=== PATIENT | female | born 1950 | race Caucasian/White ===

== ENCOUNTER 2020-05-10 13:52 | Outpatient (REF) | payer MEDICARE, SELFPAY ==
--- NOTE | 2020-05-10 13:59 | MM_ITS ---
EXAMINATION: MM SCREENING DIGITAL BREAST TOMOSYNTHESIS, BILATERAL CLINICAL INFORMATION: Screening. Asymptomatic. The lifetime risk of breast cancer based on the Tyrer-Cuzick Model is 5.5%. COMPARISON: Mammography: May 08, 2019 and studies dating back to October 04, 2011 TECHNIQUE: Digital breast tomosynthesis is performed in both the craniocaudal and mediolateral oblique views along with computer-aided detection (CAD). Synthesized 2D images are generated from the tomosynthesis. FINDINGS: The breasts are heterogeneously dense, which may obscure small masses (ACR BI-RADS breast composition Category c). There are no significant masses, abnormal calcifications, or other abnormalities. MM/MM tomosynthesis screening BI IMPRESSION: There are no significant changes from prior study. ASSESSMENT: BI-RADS 1: Negative RECOMMENDATION: Routine annual mammography screening. This patient's information was entered into a reminder system with a target due date for their next mammogram.
--- NOTE | 2020-05-10 14:00 | MM_ITS ---
EXAMINATION: BONE DENSITOMETRY CLINICAL INDICATION: Screening for osteoporosis. COMPARISON: This is the patient's baseline examination. TECHNIQUE: Using a [employer] DXA System (software version: 13.1) manufactured by [employer], dual-energy x-ray absorptiometry was performed of the lumbar spine and left hip. The images are of good technical quality. Summary results are attached. FINDINGS: AP SPINE L1-L4: BMD 1.078 g/cm2, Z-score 0.3, T-score -0.9, normal. LEFT FEMUR, NECK: BMD 0.892 g/cm2, Z-score 0.2, T-score -1.1, osteopenia. LEFT FEMUR, TOTAL: BMD 0.954 g/cm2, Z-score 0.6, T-score -0.4, normal. IDENTIFIED RISK FACTORS: Menopause. HISTORY OF FRACTURE: None listed. MEDICATIONS: Calcium, vitamin D. MM/XR DEXA axial skeleton IMPRESSION: 1. DIAGNOSIS: Osteopenia based on the lowest T-score value of -1.1 in the femoral neck applying World Health Organization criteria. 2. 10-YEAR FRACTURE RISK PREDICTION, FRAX: Major osteoporotic fracture (clinical spine, forearm, hip or shoulder) 8.3%. Hip fracture 0.7%. 3. Treatment Recommendations: NOF guidelines recommend consideration for treatment in postmenopausal women and men age 50 and older presenting with the following: -A hip or vertebral (clinical or morphometric) fracture. -T-score less than or equal to -2.5 at the femoral neck or spine after appropriate evaluation to exclude secondary causes. -Low bone mass at the hip or spine and a 10-year fracture probability by FRAX of greater than or equal to 3% for hip fracture or greater than or equal to 20% for major osteoporotic fracture based on the [place] adapted WHO algorithm. 4. Other Recommendations: All treatment decisions require clinical judgment and consideration of individual patient factors, including patient preferences, comorbidities, previous drug use, risk factors not captured in the FRAX model (e.g. frailty, falls, vitamin D deficiency, increased bone turnover, interval significant decline in bone density) and possible under or overestimation of fracture risk by FRAX. Additional medical evaluation for secondary cause of low bone mineral density may be appropriate. FUTURE SCAN RECOMMENDATION: People with diagnosed cases of osteoporosis or at high risk for fracture should have regular bone mineral density tests. For patients eligible for Medicare, routine testing is allowed once every 2 years. The testing frequency can be increased to one year for patients who have rapidly progressing disease, those who are receiving or discontinuing medical therapy to restore bone mass, or have additional risk factors.
== END 2020-05-10 13:53 | disposition home or self-care (01) ==
LOC: HO.MAMMO 13:52
PROVIDERS: PCP Family Medicine; Visit Provider Obstetrics & Gynecology
DX: Z12.31 Encounter for screening mammogram for malignant neoplasm of breast (principal); Z13.820 Encounter for screening for osteoporosis; Z79.83 Long term (current) use of bisphosphonates
CPT/HCPCS: 77063; 77067; 77080

== ENCOUNTER → 2021-04-19 09:10 | Outpatient (BNVA) | payer MEDICARE, SELFPAY | PROVIDERS: Visit Provider Obstetrics & Gynecology ==

== ENCOUNTER 2021-05-31 07:39 | Outpatient (REF) | payer MEDICARE, SELFPAY ==
--- NOTE | ~2021-05-31 | MM_ITS ---
EXAMINATION: MM SCREENING DIGITAL BREAST TOMOSYNTHESIS, BILATERAL CLINICAL INFORMATION: Screening. Asymptomatic. The lifetime risk of breast cancer based on the Tyrer-Cuzick Model is 5%. COMPARISON: Mammography: 05/10/2020, 05/08/2019, 04/15/2018 TECHNIQUE: Digital breast tomosynthesis is performed in both the craniocaudal and mediolateral oblique views along with computer-aided detection (CAD). Synthesized 2D images are generated from the tomosynthesis. FINDINGS: There are scattered areas of fibroglandular density (ACR BI-RADS breast composition Category b). There are no significant masses, abnormal calcifications, or other abnormalities. Parenchymal pattern is similar to prior studies. There is no developing density or architectural abnormality. The axilla and skin contours are unremarkable. No significant changes. MM/MM tomosynthesis screening BI IMPRESSION: No mammographic evidence of malignancy. ASSESSMENT: BI-RADS 1: Negative RECOMMENDATION: Routine annual mammography screening. This patient's information was entered into a reminder system with a target due date for their next mammogram.
== END 2021-05-31 07:40 | disposition home or self-care (01) ==
LOC: HO.MAMMO 07:39
PROVIDERS: PCP Family Medicine; Visit Provider Obstetrics & Gynecology
DX: Z12.31 Encounter for screening mammogram for malignant neoplasm of breast (principal)
CPT/HCPCS: 77063; 77067

== ENCOUNTER 2022-06-07 08:02 | Outpatient (REF) | payer MEDICARE, SELFPAY ==
--- NOTE | ~2022-06-07 | MM_ITS ---
EXAMINATION: BONE DENSITOMETRY CLINICAL INDICATION: Menopause. COMPARISON: Baseline BD dated 05/10/2020. TECHNIQUE: Using a [employer] DXA System (software version: 13.1) manufactured by [employer], dual-energy x-ray absorptiometry was performed of the lumbar spine and left hip. The images are of good technical quality. Summary results are attached. FINDINGS: AP SPINE L1-L4: Current: BMD 1.026 g/cm2, Z-score -0.3, T-score -1.3, osteopenia, 4.8% decrease from baseline (<5% change is not significant). Baseline: BMD 1.078 g/cm2. LEFT FEMUR, NECK: Current: BMD 0.842 g/cm2, Z-score -0.1, T-score -1.4, osteopenia. Baseline: BMD 0.892 g/cm2. LEFT FEMUR, TOTAL: Current: BMD 0.925 g/cm2, Z-score 0.3, T-score -0.7, normal, 3.0% decrease from baseline (<5% change is not significant). Baseline: BMD 0.954 g/cm2. IDENTIFIED RISK FACTORS: Menopause. HISTORY OF FRACTURE: None listed. MEDICATIONS: Calcium supplement or multivitamin. Vitamin D. MM/XR DEXA axial skeleton IMPRESSION: 1. DIAGNOSIS: Osteopenia based on the lowest T-score value of -1.4 in the femoral neck applying World Health Organization criteria. 2. 10-YEAR FRACTURE RISK PREDICTION, FRAX: Major osteoporotic fracture (clinical spine, forearm, hip or shoulder) 9.1%. Hip fracture 1.2%. 3. Treatment Recommendations: NOF guidelines recommend consideration for treatment in postmenopausal women and men age 50 and older presenting with the following: -A hip or vertebral (clinical or morphometric) fracture. -T-score less than or equal to -2.5 at the femoral neck or spine after appropriate evaluation to exclude secondary causes. -Low bone mass at the hip or spine and a 10-year fracture probability by FRAX of greater than or equal to 3% for hip fracture or greater than or equal to 20% for major osteoporotic fracture based on the [place] adapted WHO algorithm. 4. Other Recommendations: All treatment decisions require clinical judgment and consideration of individual patient factors, including patient preferences, comorbidities, previous drug use, risk factors not captured in the FRAX model (e.g. frailty, falls, vitamin D deficiency, increased bone turnover, interval significant decline in bone density) and possible under or overestimation of fracture risk by FRAX. Additional medical evaluation for secondary cause of low bone mineral density may be appropriate. FUTURE SCAN RECOMMENDATION: People with diagnosed cases of osteoporosis or at high risk for fracture should have regular bone mineral density tests. For patients eligible for Medicare, routine testing is allowed once every 2 years. The testing frequency can be increased to one year for patients who have rapidly progressing disease, those who are receiving or discontinuing medical therapy to restore bone mass, or have additional risk factors.
--- NOTE | ~2022-06-07 | MM_ITS ---
EXAMINATION: MM SCREENING DIGITAL BREAST TOMOSYNTHESIS, BILATERAL CLINICAL INFORMATION: Screening. Asymptomatic. The lifetime risk of breast cancer based on the Tyrer-Cuzick Model is 5%. COMPARISON: Mammography: 05/31/2021, 05/10/2020, 05/08/2019 TECHNIQUE: Digital breast tomosynthesis is performed in both the craniocaudal and mediolateral oblique views along with computer-aided detection (CAD). Synthesized 2D images are generated from the tomosynthesis. FINDINGS: There are scattered areas of fibroglandular density (ACR BI-RADS breast composition Category b). There are no significant masses, abnormal calcifications, or other abnormalities. Parenchymal pattern is similar to prior studies and there is no developing density or interval architectural abnormality. Incidental dermal lesion again noted overlying the mid lower left breast. The axilla are unremarkable. No significant changes. MM/MM tomosynthesis screening BI IMPRESSION: No mammographic evidence of malignancy. ASSESSMENT: BI-RADS 2: Benign RECOMMENDATION: Routine annual mammography screening. This patient's information was entered into a reminder system with a target due date for their next mammogram.
== END 2022-06-07 08:03 | disposition home or self-care (01) ==
LOC: HO.MAMMO 08:02
PROVIDERS: PCP Family Medicine; Visit Provider Obstetrics & Gynecology
DX: Z12.31 Encounter for screening mammogram for malignant neoplasm of breast (principal); Z13.820 Encounter for screening for osteoporosis; Z78.0 Asymptomatic menopausal state
CPT/HCPCS: 77063; 77067; 77080

== ENCOUNTER → 2022-07-04 12:17 | Outpatient (BNVA) | payer MEDICARE, SELFPAY | PROVIDERS: PCP Family Medicine; Visit Provider Obstetrics & Gynecology | DX: M85.80 Other specified disorders of bone density and structure, unspecified site (principal) | CPT/HCPCS: 99212 ==

== ENCOUNTER 2023-06-07 12:17 | Outpatient (AMB) | payer MEDICARE, SELFPAY ==
--- NOTE | 2023-06-07 12:19 | MHC.OFFVIS ---
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 No complaints. Last Pap/HPV was in 2013 was negative, this was preceded by negative Pap in 2012 in 2011 Last Mammogram was in 06/23 was BI-RADS 2 Last Colonoscopy was in 2022 at [facility], the recommendation according to the patient is to repeat in 10 years Last DEXA scan was in 06/26 was in the low risk category with no evidence of osteoporosis PFSH Medical History High cholesterol Surgical History Hx of neck surgery Family History Father COPD (chronic obstructive pulmonary disease) Mother Lung cancer Social History Alcohol intake: never Sexual orientation: Straight/Heterosexual Gender identity: Female Female Reproductive History Menstrual Age of Menarche: 14 Menopause type: natural Total pregnancies: 2 Full term: 2 Number of Living Children: 2 Date of last pap smear: 05/18/14 (neg) Date of Mammogram: 06/07/22 Date of last Bone Density Screenin06/07/22 Review of Systems Const All systems reviewed & are unremarkable except as noted in HPI and below Card Reports as per HPI Resp Reports as per HPI GI Reports as per HPI and Reports no additional complaints Reports as per HPI Physical Exam Vital Signs: BMI result Body Mass Index 33.7 Const General: cooperative, healthy appearing and comfortable Chest Chest palpation & inspection: normal inspection of the chest and normal palpation of entire chest wall Breast/axilla inspection: normal inspection of the breasts and normal inspection of the axillae Breast/axilla palpation: normal palpation of the breasts, normal palpation of the axillae and no axillary lymphadenopathy Resp Effort & Inspection: normal respiratory effort Auscultation: clear to auscultation bilaterally Percussion: percussion normal Cardio Palpation: normal PMI Rate: regular rate Rhythm: regular rhythm Heart sounds: no murmurs and no rubs Peripheral pulses: Peripheral pulses 2+ throughout GI Inspection: Yes normal to inspection Palpation (GI): Soft to palpation, nontender, no guarding, not rigid and No hepatosplenomegaly present Percussion: Yes normal to percussion Auscultation: normal bowel sounds Rectal Exam - Female: deferred General: Yes bladder normal to palpation External Female Exam: No lesion Speculum Exam - Vagina: normal appearance of the vagina, normal palpation, normal vaginal discharge and not erythematous Speculum Exam - Cervix: normal appearance of the cervix and normal palpation Bimanual exam- vagina & uterus: normal bimanual exam, normal palpation, uterine size normal, bladder normal to palpation, consistency normal and normal palpation Bimanual Exam- Adnexa, other: normal adnexae, no masses and no tenderness Assessment & Plan Assessment & Plan (1) Well woman exam: Code(s): Z01.419 - Encounter for gynecological examination (general) (routine) without abnormal findings Plan: Co testing not indicated since the patient 's age is above 65 with no history of abnormal Pap smears last 25 years. Counseled the patient about the recommended dietary allowance of 1200 mg of Calcium & 800 IU of vitamin D. Mammogram ordered. The patient was instructed to schedule an annual exam in a year; All questions answered and the patient verbalized understanding. Orders: Orders MM tomosynthesis screening BI Today Z12.31 - Encounter for screening mammogram for malignant neoplasm of breast Coding Level of Care Code Est Pt Prev Care >65y(79552) Diagnoses Well woman exam Z01.419
[2023-06-07 12:20] VITALS: BP 122/70; BMI 33.7
== END 2023-06-07 12:40 | disposition home or self-care (01) ==
LOC: HO.HWS 12:17
PROVIDERS: PCP Family Medicine; Visit Provider Obstetrics & Gynecology
DX: Z01.419 Encounter for gynecological examination (general) (routine) without abnormal findings (principal)
CPT/HCPCS: G0101

== ENCOUNTER → 2023-06-07 12:17 | Outpatient (BNVA) | payer MEDICARE, SELFPAY | PROVIDERS: PCP Family Medicine; Visit Provider Obstetrics & Gynecology | DX: Z01.419 Encounter for gynecological examination (general) (routine) without abnormal findings (principal) | CPT/HCPCS: G0101 ==

== ENCOUNTER 2023-06-09 07:29 | Outpatient (REF) | payer MEDICARE, SELFPAY | END 2023-06-09 07:30 | disposition home or self-care (01) | LOC: HO.MAMMO 07:29 | PROVIDERS: PCP Family Medicine; Visit Provider Family Medicine | DX: Z12.31 Encounter for screening mammogram for malignant neoplasm of breast (principal) | CPT/HCPCS: 77063; 77067 ==

== ENCOUNTER → 2023-06-09 07:45 | Outpatient (BNV) | payer MEDICARE, SELFPAY | PROVIDERS: PCP Family Medicine; Visit Provider Radiology Diagnostic Radiology | DX: Z12.31 Encounter for screening mammogram for malignant neoplasm of breast (principal) | CPT/HCPCS: 77063; 77067 ==

== ENCOUNTER 2024-06-20 13:47 | Outpatient (REF) | payer MEDICARE, SELFPAY ==
--- OUTSIDE RECORDS SUMMARY | 2024-06-20 16:27 | XMS_ITS | Continuity of Care Document ---
Author Organization [facility], Eye Care, [facility] Address [address] [place] [address] Care Team Providers Care Computer Engineering Technologist Name Role Phone JESSICA BESS Primary Care Provider Unavailab JESSICA Nina Primary Care Provider MANUEL SILVA Rental Car Ferry Driver [phone] JULIENNE COOMBS Technology Integration Specialist JULIENNE WEBB Life Advisor Assessment No assessment recorded. Plan of Treatment Reminders Order Date Submit Date Provider Last Modified By Organization Details Last Modified Time Details Appointments LAB Follow- Up 2024 06:30A M [facility] Lab Not available Not available Not available Kajal s Visit 30 2024 11:00A M Jessica Bess MD Not available Not available Not available Compreh ensive Eye Exam, 20 Min 2024 01:40P M Megan Silva, OD Not available Not available Not available Lab None recorde d. Referral None recorde d. Procedures None recorde d. Surgeries None recorde d. Imaging None recorde d. Medication Orders None recorde d. Patient TargetsNo targets recorded. Patient InstructionsNo instructions recorded. Reason for Referral None Reported. Problems Name Problem SNOMED Code Status Onset Date Resolution Date Notes Provider Name and Address Organization Details Recorded Time Mixed hyperlipidem ia 618526270 Active Jessica Bess [address] [place], [address], [facility] 2 14:14:17 Obesity 590130639 Active 2017 Jessica Bess [address] [place], [address], [facility] 2 14:17:59 Osteopenia 248622512 Active 2022 Jessica Bess [address] [place], [address], [facility] 3 20:54:48 Low tension glaucoma 34869088 Active [address] Georgina Silva, OD [address] [place], [address], [facility] 4 16:37:36 Problem Notes None recorded. Procedures Surgical History Date Name Laterality Status Provider Name and Address Organization Details Recorded Time 04/09/20 Visual field comprehensive completed Megan Silva, OD [address] [place], [address], [facility] 05/19/2024 13:42:41 01/05/20 22 89257: Therapeutic Exercise completed Kayegeoffrey Jiange Ms, PT [address] [place], [address], [facility] 01/04/2022 14:36:48 01/05/20 Treatment and Advice completed Kayegeoffrey Villegas Ms, PT [address] [place], [address], [facility] 01/04/2022 14:38:21 12/07/19 22 64343: Manual Therapy completed Kaye Villegas Ms, PT [address] [place], [address], [facility] 12/06/2021 11:04:28 12/02/19 22 24082: Manual Therapy completed Kaye Villegas Ms, PT [address] [place], [address], [facility] 12/01/2021 08:05:21 11/23/19 22 99808: Manual Therapy completed Kayegeoffrey Villegas Ms, PT [address] [place], [address], [facility] 11/22/2021 09:31:59 11/23/19 22 Treatment and Advice completed Kayegeoffrey Villegas Ms, PT [address] [place], [address], [facility] 11/22/2021 09:30:41 11/02/19 65578: Manual Therapy completed Kaye Villegas Ms, PT [address] [place], [address], [facility] 11/01/2021 07:34:48 10/26/19 29588: Manual Therapy completed Kaye Villegas Ms, PT [address] [facility] [place], [address], [facility] 10/25/2021 07:31:54 10/19/19 80566: Therapeutic Exercise completed Kaye Villegas Ms, PT [address] [place], [address], [facility] 10/18/2021 07:30:23 10/19/19 52886: Manual Therapy completed Kaye Villegas Ms, PT [address] [place], [address], [facility] 10/18/2021 07:31:44 10/19/19 22 Treatment and Advice completed Kaye Villegas Ms, PT [address] [place], [address], [facility] 10/18/2021 07:32:14 10/14/19 22 Physical Activity Counselling completed Kaye Villegas Ms, PT [address] [place], [address], [facility] 10/13/2021 19:31:36 10/14/19 22 31040: PT Eval Low Complexity completed Kaye Villegas Ms, PT [address] [place], [address], [facility] 10/13/2021 19:31:30 10/14/19 22 Treatment and Advice completed Kaye Villegas Ms, PT [address] [place], [address], [facility] 10/13/2021 13:03:17 09/30/19 22 Fundus Photography completed Megan Silva, OD [address] [place], [address], [facility] 10/13/2021 13:49:08 09/13/19 22 Medicare Wellness Visit completed Yesica Funes MA [facility] 09/12/2021 08:31:42 09/13/19 22 Alcohol use screening completed Yesica Funes MA [facility] 09/12/2021 08:31:42 09/13/19 22 Cardiovascular disease risk reduction counseling completed Yesica Funes MA [facility] 09/12/2021 08:31:42 09/13/19 22 Medicare Risk for Falls Screen completed MALACHI Bernal [facility] 09/12/2021 14:01:10 08/23/19 22 Visual field comprehensive completed Megan Silva, OD [address] [place], [address], [facility] 09/09/2021 21:02:55 08/23/19 22 Optical Coherence Tomography (Optic Nerve) completed Megan Silva, OD [address] [place], [address], [facility] 09/09/2021 21:01:07 09/11/19 21 Pachymetry completed Sue Rodriguez [facility] 09/10/2020 08:37:55 09/11/19 21 Visual field comprehensive completed Megan Silva, OD [address] [place], [address], [facility] 09/10/2020 09:21:20 08/21/19 21 Fundus Photography completed Megan Silva, OD [address] [place], [address], [facility] 08/20/2020 17:07:49 08/21/19 21 Refraction completed Sue Rodriguez [facility] 08/20/2020 13:27:59 08/21/19 21 Optical Coherence Tomography (Optic Nerve) completed Megan Silva, OD [address] [place], [address], [facility] 08/20/2020 17:09:19 03/30/20 20 Medicare Wellness Visit completed Lis Guadarrama MA [facility] 03/25/2020 09:18:22 03/30/20 20 prevention-cardio vascular risk reduction counseling completed Lis Guadarrama MA [facility] 03/25/2020 09:18:22 03/30/20 20 prevention-annual alcohol misuse screening completed Lis Guadarrama [facility] 03/25/2020 09:18:22 03/30/20 20 Advanced Care Planning completed Jessica Bess [address] [place], [address], [facility] 03/30/2020 09:38:13 03/24/20 19 Medicare Wellness Visit completed Ariane Escoto LPN [facility] 03/24/2019 09:46:43 03/24/20 19 Advanced Care Planning completed Jessica Bess [address] [place], [address], [facility] 03/24/2019 10:27:18 06/13/19 19 Refraction completed Jimena Wilkinson [facility] 06/13/2018 10:14:25 03/12/20 18 Medicare Wellness Visit completed Ariane Escoto LPN [facility] 03/12/2018 15:09:45 05/22/20 14 #128 BMI High, Follow-Up Documented completed Deborah Bass Ms, Rdn, Ldn, CDE [address] [place], [address], [facility] 05/25/2014 09:47:16 05/22/20 14 #130 Current Meds Documented completed Deborah Bass Ms, Rdn, Ldn, CDE [address] [place], [address], [facility] 05/25/2014 09:47:16 03/26/20 14 #128 BMI High, Follow-Up Documented completed Deborah Bass, Ms, Rdn, Ldn, CDE [address] [place], [address], [facility] 04/02/2014 06:32:04 03/26/20 14 #130 Current Meds Documented completed Deborah Bass, Ms, Rdn, Ldn, CDE [address] [place], [address], [facility] 04/02/2014 06:32:04 01/24/20 14 #1 A1c Testing Not Performed, Reason NOS completed Deborah Bass, Ms, Rdn, Ldn, CDE [address] [place], [address], [facility] 01/23/2014 10:30:03 01/24/20 14 #2 LDL 100-129 completed Deborahkermit Bass, Ms, Rdn, Ldn, CDE [address] [place], [address], [facility] 01/23/2014 10:30:03 01/24/20 14 #128 BMI High, Follow-Up Documented completed Deborahkermit Bass, Ms, Rdn, Ldn, CDE [address] [place], [address], [facility] 01/23/2014 10:30:03 01/24/20 14 #130 Current Meds Documented completed Deborahkermit Bass, Ms, Rdn, Ldn, CDE [address] [place], [address], [facility] 01/23/2014 10:30:03 01/24/20 14 #181 Elder Maltreatment No Doc, Pt Not Eligible completed Deborah Lukas, Ms, Rdn, Ldn, CDE [address] [place], [address], [facility] 01/23/2014 10:30:03 Imaging Results None recorded. Procedure Notes None recorded. Medical Equipment None Reported. Allergies No known drug allergies Medications Name Sig Start Date Stop Date Status Note LastModified by Organization Details LastModified Time latanopro st 0.005 % eye drops INSTILL 1 DROP INTO BOTH EYES AT BEDTIME active Not Available Not Available No t Available aspirin 81 mg tablet,de layed release Take 1 tablet every day by oral route. 03/30 completed Not Available Not Available Not Available pravastat in 10 mg tablet TAKE 1 TABLET BY MOUTH EVERY DAY active Not Available Not Available No t Available sulfaceta mide sodium 10 % eye drops INSTILL 1 DROP INTO AFFECTED EYE(S) BY OPHTHALM IC ROUTE EVERY 2-3 HOURS DURING THE DAY AND LESS FREQUENT LY AT NIGHT 02/27 completed Not Available Not Available Not Available Valtrex 500 mg tablet Take 1 tablet twice a day by oral route for 3 days. 01/17 completed Not Available Not Available Not Available bisacodyl 5 mg tablet,de layed release TAKE 1 TABLET BY MOUTH ONCE 09/17 completed Not Available Not Available Not Available pravastat in 20 mg tablet TAKE 1 TABLET BY MOUTH EVERY DAY 2014 active Not Available Not Available Not Avai lable multivita min active womens multivit jones Not Available Not Available Not Available Fish Oil 1,000 mg capsule active Not Available Not Available Not Available GaviLyte- G 236 gram-22.7 4 gram-6.74 gram-5.86 gram oral solution 09/17 completed Not Available Not Available Not Available Shingrix (PF) 50 mcg/0.5 mL intramusc ular suspensio n, kit ADM 0.5ML IM UTD 03/30 completed Not Available Not Available Not Available Fluzone High-Dose Quad (PF) 240 mcg/0.7 mL IM syringe PHARMACI ST ADMINIST ERED IMMUNIZA TION ADMINIST ERED AT TIME OF DISPENSI NG 03/30 completed Not Available Not Available Not Available Paxlovid 300 mg (150 mg x 2)-100 mg tablets in a dose pack PLEASE SEE ATTACHED FOR DETAILED DIRECTIO NS active Not Available Not Available No t Available calcium 26-vit D3-magnes ium 15 one tablet daily active Not Available Not Available No t Available Vitals None Recorded Social History Question Answer Notes LastModified by Organizat ion Details LastModified Time Tobacco Smoking Status Never Smoker Not Available [facility] 04/20/2011 05:00:03 Do You Have An Advance Directive? Yes [id number] Information not available 04/20/2011 What Is Your Level Of Alcohol Consumption? None Information not available 02/23/2016 Do You Wear A Helmet When Biking? No N/a Information not available 02/23/2016 What Is Your Level Of Caffeine Consumption? Moderate Ice Tea Has Decreased Information not available 02/27/2017 How Much Tobacco Do You Chew? None Information not available 02/23/2016 Are You Currently Employed? No Information not available 09/12/2021 What Type Of Diet Are You Following? REGULAR 'trying To Be' - She Has A Hard Time With Fruits/vegs Information not available 09/18/2023 Which Illicit Or Recreational Drugs Have You Used? None Information not available 02/23/2016 Do You Or Have You Ever Used E-cigarettes Or Vape? Never Used Electronic Cigarettes Information not available 09/23/2020 What Is The Highest Grade Or Level Of School You Have Completed Or The Highest Degree You Have Received? [id number] Information not available 09/12/2021 What Is Your Occupation? Retired Was Working As [employer] Information not available 01/25/2011 Have There Been Any Changes To Your Family Or Social Situation? No Information not available 09/12/2021 Are There Any Guns Present In Your Home? No Information not available 02/27/2017 Do You Use Insect Repellent Routinely? Yes [email or web address] Information not available 09/18/2023 Does The Patient Have Difficulty Speaking Bermudian? No Information not available 02/18/2015 Does The Patient Have Difficulty Reading Bermudian? No Information not available 02/18/2015 Patient Has Health Care Proxy Signed And In Chart Yes Brother Ayush Richards ([employer]) - [phone] Information not available 03/28/2019 MOLST Form Signed And In Chart 03/24/2019 Information not available 03/28/2019 CCM Consent Discussion 03/12/2018 Information not available 03/13/2018 What Was The Date Of Your Most Recent Tobacco Screening? 09/18/2023 [email or web address] Information not available 09/18/2023 How Many Children Do You Have? 2 Girl And Boy Both eoles Information not available 01/25/2011 What Is Your Relationship Status? Information not available 09/12/2021 Do You Use Your Seat Belt Or Car Seat Routinely? Yes Information not available 09/12/2021 Are You Sexually Active? No Information not available 09/12/2021 Do You Have Smoke And Carbon Monoxide Detectors In Your Home? Yes Information not available 09/12/2021 Are You Passively Exposed To Smoke? No Parents Smoked [email or web address] Information not available 09/18/2023 Do You Or Have You Ever Used Smokeless Tobacco? Never Used Smokeless Tobacco Information not available 09/23/2020 How Much Tobacco Do You Smoke? No Information not available 09/23/2020 What Types Of Sporting Activities Do You Participate In? None Information not available 02/23/2016 Do You Use Sunscreen Routinely? Yes Information not available 02/23/2016 Sex: Female Functional Status Question Answer Note LastModified by Organizat ion Details LastModified Time What is your exercise level? 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 Family History Relationship Description Onset Age of this Age Resolved Age Notes LastModified by Organization Details LastModified Time Mother Cerebrovascu lar accident multip le Not available 02/18/2015 08:33:04 Mother Myocardial infarction 57 71 multip le Not available 02/18/2015 08:31:28 Mother Dementia Not availab le 02/18/2015 08:33:04 Mother Disorder of thyroid gland overac tive Not available 02/18/2015 08:33:04 Mother Chronic obstructive pulmonary disease Not available 02/18 08:33:04 Father Glaucoma Not availab le 02/18/2015 08:33:04 Father Peripheral vascular disease Not available 02/18 08:33:04 Father Depressive disorder and anxiet y Not available 02/18/2015 08:33:04 Father Myocardial infarction 85 Not available 02/02 08:33:04 Father Abdominal aortic aneurysm s/p repair Not available 03/30/2020 09:29:07 Father Cataract Not availab le 09/12/2021 14:16:18 Brother Myocardial infarction 54 Not available 02/02 08:33:04 Brother Hyperlipidem ia very high (on Lipito r) Not available 02/18/2015 08:33:04 Brother Sleep apnea Not kirby ilable 02/18/2015 08:33:04 Brother Kidney stone Not av ailable 02/18/2015 08:33:04 Brother Diabetes mellitus now in remiss ion - 2 - LS Not available 09/12/2021 14:16:13 Sister Asthma Not available 02/18/2015 08:33:04 Sister Hyperlipidem ia Not available 02/18 08:33:04 Sister Gastroesopha geal reflux disease hiatal hernia Not available 03/30/2020 09:29:22 Notes:No colon CA, no breast CA Medical History Condition Response Hyperlipidemia Y Gynecological History Statement/Question Response Menses Monthly N Hysterectomy N History of Abnormal Pap N Age at Menarche 15 LMP Obstetrics History GPAL:G 0 P 0 0 0 0 Immunizations Vaccine Type Date Status Note Provider Nam e and Address Organization Details Recorded Time Tdap 1 completed Not Available [facility] 06/21/2019 02:36:33 Influenza, split virus, trivalent, PF 3 completed Not Available [facility] 06/21/2019 02:18:58 Influenza, split virus, trivalent, PF 4 completed Not Available [facility] 06/21/2019 02:27:11 Influenza, split virus, quadrivalent, PF 6 completed Not Available [facility] 06/21/2019 02:20:43 Influenza, split virus, quadrivalent, PF 7 completed Not Available [facility] 06/21/2019 02:22:02 Hep A, adult 7 completed Not Available [facility] 06/21/2019 02:20:10 zoster live 5 completed JAYE Aguilar [facility] 02/19/2015 15:09:56 influenza, unspecified formulation 5 completed JAYE Aguilar, [facility] 02/19/2015 15:09:56 Hep A, adult 8 completed Not Available [facility] 06/21/2019 02:22:59 Influenza, high-dose, trivalent, PF 8 completed Not Available [facility] 06/21/2019 02:29:21 Pneumococcal conjugate PCV 13 8 completed Not Available [facility] 06/21/2019 02:25:06 pneumococcal polysaccharide PPV23 9 completed Not Available [facility] 06/21/2019 02:24:31 polio, unspecified formulation 3 completed Nafisa Koch RN, BSN null, [facility] 10/21/2018 09:27:43 polio, unspecified formulation 3 completed Nafisa Koch RN, BSN null, [facility] 10/21/2018 09:28:00 polio, unspecified formulation 4 completed Nafisa Koch RN, BSN null, [facility] 10/21/2018 09:28:12 vaccinia (smallpox) 3 completed Nafisa Koch RN, BSN null, [facility] 10/21/2018 09:28:42 vaccinia (smallpox) 1 completed Nafisa Koch RN, BSN null, [facility] 10/21/2018 09:29:02 typhoid, unspecified formulation 3 completed Nafisa Koch RN, BSN null, [facility] 10/21/2018 09:29:26 DTaP, unspecified formulation 5 completed Nafisa Koch RN, BSN null, [facility] 10/21/2018 09:29:49 DTaP, unspecified formulation 8 completed Nafisa Koch RN, BSN null, [facility] 10/21/2018 09:29:57 polio, unspecified formulation 6 completed Nafisa Koch RN, BSN null, [facility] 10/21/2018 09:31:05 polio, unspecified formulation 7 completed Nafisa Koch RN, BSN null, [facility] 10/21/2018 09:31:27 Tdap 3 completed Nafsia Koch RN, BSN null, [facility] 10/21/2018 09:31:51 Tdap 3 completed Nafisa Koch RN, BSN null, [facility] 10/21/2018 09:32:02 Tdap 3 completed Nafisa Koch RN, BSN null, [facility] 10/21/2018 09:32:18 typhoid, unspecified formulation 3 completed Nafisa Koch RN, BSN null, [facility] 10/21/2018 09:32:42 typhoid, unspecified formulation 3 completed Nafisa Koch RN, BSN null, [facility] 10/21/2018 09:32:50 typhoid, unspecified formulation 3 completed Nafisa Koch RN, BSN null, [facility] 10/21/2018 09:33:12 measles 4 completed Nafisa Koch RN, BSN null, [facility] 10/21/2018 09:33:31 Influenza, split virus, quadrivalent, preservative 9 completed Not Available [facility] 07/05/2019 02:10:44 zoster recombinant 0 [facility] 10:27:04 Influenza, high-dose, quadrivalent, PF 1 completed Crys Cotton LPN null, [facility] 03/31/2021 09:08:55 zoster recombinant 9 [facility] 03/10/2024 10:27:04 Td (adult), 2 Lf tetanus toxoid, preservative free, adsorbed 2 completed Jessica Bess [address] [place] [address], [address], [facility] 09/12/2021 14:31:45 Influenza, high-dose, quadrivalent, PF 2 completed [facility] 03/17/2022 13:26:07 COVID-19, mRNA, LNP-S, PF, 100 mcg/0.5mL dose or 50 mcg/0.25mL dose 1 completed Karli Lelia null, [facility] 03/10/2024 10:27:04 COVID-19, mRNA, LNP-S, PF, 100 mcg/0.5mL dose or 50 mcg/0.25mL dose 1 completed Karli Lelia null, [facility] 03/10/2024 10:27:04 Influenza, high-dose, quadrivalent, PF 3 completed Yahaira Wilson LPN null, [facility] 02/24/2023 11:15:25 COVID-19, mRNA, LNP-S, PF, 100 mcg/0.5mL dose or 50 mcg/0.25mL dose 1 completed Karli Lelia null, [facility] 03/10/2024 10:27:04 COVID-19 mRNA, bivalent, original/Omicron BA.1, Non-US Vaccine Product, [employer] 2 completed Jessica Bess [address] [place] [address], [phone], [facility] 09/14/2022 08:52:37 Influenza, high-dose, trivalent, PF 4 completed Yahaira Wilson LPN null, [facility] 02/24/2024 08:48:26 Influenza, high-dose, quadrivalent, PF 0 completed Karli Lelia null, [facility] 03/10/2024 10:27:04 COVID-19, mRNA, LNP-S, PF, 50 mcg/0.5 mL 3 completed Karli Lelia null, [facility] 03/10/2024 10:27:04 COVID-19, mRNA, LNP-S, PF, 50 mcg/0.5 mL 4 completed Karli Lelia null, [facility] 03/10/2024 10:27:51 Past Encounters Encounter ID Performer Location Encounter Start Date Encounter Closed Date Diagnosis/Indication Diagnosis SNOMED-CT Code Diagnosis ICD10 Code Diagnosis Note [id number] Megan Silva, OD [facility], [facility] [address] [place] [address] 04/09/2024 13:31:57 05/21/2024 12:57:25 Low tension glaucoma 75655999 H40.1232 VF unreliable OD and OS. poor quality photos OU today. CPM and f/u with Dr. Erickson as scheduled. Health Concerns Section Related Observation LastModified by Organization Detai ls LastModified Time None Recorded Concern Status LastModified by Organization Details LastModified Time None Recorded Payers Encounter Date Sequence Insurance Name Policy Number Policy Jones Covered Member ID Jones Member ID Guarantor Name 04/09/2024 1 [place] [employer] Lisa Cesar [id number] Lisa Cesar 04/09/2024 2 [place] [id number] Lisa Cesar [id number] Lisa Cesar OBGyn Episode No OBEpisode recorded.
== END 2024-06-20 13:48 | disposition home or self-care (01) ==
LOC: HO.MAMMO 13:47
PROVIDERS: PCP Family Medicine; Visit Provider Family Medicine
DX: Z12.31 Encounter for screening mammogram for malignant neoplasm of breast (principal)
CPT/HCPCS: 77063; 77067

== ENCOUNTER 2024-08-21 09:34 | Outpatient (AMB) | payer MEDICARE, SELFPAY ==
--- NOTE | 2024-08-21 09:51 | A.OFFVIS_ITS ---
Vital Signs 08/21/24 10:01 Height 5 ft 3 in Weight 192 lb BMI 34.0 BP 126/84 Intake Visit Reasons: [employer] annual exam/DO NOT RS Slots Manager: Slots Manager Present (Grace) Accompanied by: Self / Same As Patient Allergies No Known Allergies Allergy (Verified 08/21/24 09:58) Is last menstrual period known: No Post menopausal: Yes Patient : No HPI Comments Details: Presenting for annual exam. No complaints. Last Pap/HPV was in 2013 was negative, this was preceded by negative Pap in 2012 in 2011 Last Mammogram was in 06/28 was BI-RADS 1 [facility] the recommendation according to the patient is to repeat in 10 years Last DEXA scan was in 06/26 was in the low risk category with no evidence of osteoporosis PFSH Medical History High cholesterol Surgical History Hx of neck surgery Family History Father COPD (chronic obstructive pulmonary disease) Mother Lung cancer Social History Alcohol intake: never Sexual orientation: Straight/Heterosexual Gender identity: Female Female Reproductive History Menstrual Age of Menarche: 14 Date of Mammogram: 06/20/24 (bi rad 1) Date of last Bone Density Screenin06/07/22 Review of Systems Const All systems reviewed & are unremarkable except as noted in HPI and below Card Reports as per HPI Resp Reports as per HPI GI Reports as per HPI and Reports no additional complaints Reports as per HPI Physical Exam Vital Signs: Last Vital Signs BP 126/84 08/21/24 10:01 BMI result Body Mass Index 34.0 Const General: cooperative, healthy appearing and comfortable Chest Chest palpation & inspection: normal inspection of the chest and normal palpation of entire chest wall Breast/axilla inspection: normal inspection of the breasts and normal inspection of the axillae Breast/axilla palpation: normal palpation of the breasts, normal palpation of the axillae and no axillary lymphadenopathy Resp Effort & Inspection: normal respiratory effort Auscultation: clear to auscultation bilaterally Percussion: percussion normal Cardio Palpation: normal PMI Rate: regular rate Rhythm: regular rhythm Heart sounds: no murmurs and no rubs Peripheral pulses: Peripheral pulses 2+ throughout GI Inspection: Yes normal to inspection Palpation (GI): Soft to palpation, nontender, no guarding, not rigid and No hepatosplenomegaly present Percussion: Yes normal to percussion Auscultation: normal bowel sounds Rectal Exam - Female: deferred General: Yes bladder normal to palpation External Female Exam: No lesion Speculum Exam - Vagina: normal appearance of the vagina, normal palpation, normal vaginal discharge and not erythematous Speculum Exam - Cervix: normal appearance of the cervix and normal palpation Bimanual exam- vagina & uterus: normal bimanual exam, normal palpation, uterine size normal, bladder normal to palpation, consistency normal and normal palpation Bimanual Exam- Adnexa, other: normal adnexae, no masses and no tenderness Assessment & Plan Assessment & Plan (1) Well woman exam: Code(s): Z01.419 - Encounter for gynecological examination (general) (routine) without abnormal findings Category: Medical Plan: Co testing not indicated since the patient 's age is above 65 with no history of abnormal Pap smears last 25 years. Counseled the patient about the recommended dietary allowance of 1200 mg of Calcium & 800 IU of vitamin D. Instructions given the patient to schedule next screening Mammogram in 06/29. Will order DEXA scan . The patient was instructed to perform monthly self-breast exams and to schedule a 2 week DEXA scan follow-up appointment and an annual exam in a year; All questions answered and the patient verbalized understanding. Orders: Orders XR DEXA axial skeleton Today Z78.0 - Asymptomatic menopausal state Coding Level of Care Code Est Pt Prev Care >65y(10265) Diagnoses Well woman exam Z01.419
[2024-08-21 10:01] VITALS: BP 126/84; BMI 34.0
== END 2024-08-21 10:09 | disposition home or self-care (01) ==
LOC: HO.HWS 09:34
PROVIDERS: PCP Family Medicine; Visit Provider Obstetrics & Gynecology
DX: Z01.419 Encounter for gynecological examination (general) (routine) without abnormal findings (principal)
CPT/HCPCS: G0101

== ENCOUNTER → 2024-08-21 09:34 | Outpatient (BNVA) | payer MEDICARE, SELFPAY | PROVIDERS: PCP Family Medicine; Visit Provider Obstetrics & Gynecology | DX: Z01.419 Encounter for gynecological examination (general) (routine) without abnormal findings (principal) | CPT/HCPCS: G0101 ==

== ENCOUNTER 2024-09-11 08:15 | Outpatient (REF) | payer MEDICARE, SELFPAY ==
--- NOTE | ~2024-09-11 | MM_ITS ---
EXAMINATION: DXA BONE DENSITY AXIAL HISTORY: Z78.0 - Asymptomatic menopausal state TECHNIQUE: adQuota Dual energy absorptiometry (DEXA) of the lumbar spine, total left hip, and femoral neck was performed. COMPARISON: Comparison is made with the prior examination dated 06/07/2022. FINDINGS: The bone mineral density of the lumbar spine is 1.112 with a T-score of -0.6, and a Z-score of 0.4. This is indicative of normal bone mineral density. This represents a BMD change of 8.4% compared to the prior exam. This is statistically significant. The bone mineral density of the left total hip is 0.930 with a T-score of -0.6, and a Z-score of 0.4. This is indicative of normal bone mineral density. This represents a BMD change of 0.5% compared to the prior exam. This is not statistically significant. The bone mineral density of the left femoral neck is 0.874 with a T-score of -1.2, and a Z-score of 0.1. This is indicative of osteopenia. This represents a BMD change of 3.8% compared to the prior exam. FRACTURE RISK: The FRAX index suggests a ten year probability of major osteoporotic fracture of 9.0%, and of hip fracture 1.1%. MM/XR DEXA axial skeleton IMPRESSION: Based on bone mineral density, and according to World Health Organization (WHO) criteria, the diagnosis is consistent with osteopenia. All bone density values are in grams per centimeter squared (g/cm2). Statistically, 68% of repeat scans fall within 1 SD (+/- 0.010 g/cm2 for AP spine L1-L4) and 1 SD (+/- 0.012 g/cm2 for femur total) FRAX is a trademark of the [employer] [employer] [facility] [employer], a World Health Organization (WHO) Collaborating Center. Electronically signed by: Lawrence Gibson MD 09/11/2024 09:02 AM EDT
== END 2024-09-11 08:16 | disposition home or self-care (01) ==
LOC: HO.MAMMO 08:15
PROVIDERS: PCP Family Medicine; Visit Provider Obstetrics & Gynecology
DX: Z13.820 Encounter for screening for osteoporosis (principal); Z78.0 Asymptomatic menopausal state
CPT/HCPCS: 77080

== ENCOUNTER → 2024-09-11 08:15 | Outpatient (BNV) | payer MEDICARE, SELFPAY | PROVIDERS: PCP Family Medicine; Visit Provider Radiology Diagnostic Radiology | DX: E28.39 Other primary ovarian failure (principal) | CPT/HCPCS: 77080 ==

== ENCOUNTER → 2024-10-02 09:38 | Outpatient (BNVA) | payer MEDICARE, SELFPAY | PROVIDERS: PCP Family Medicine; Visit Provider Obstetrics & Gynecology ==